=== PATIENT | male | born 1995 | race African-American/Black ===

== ENCOUNTER 2025-04-18 12:40 | Emergency (ER) | payer OTHER, SELFPAY ==
--- NOTE | ~2025-04-18 | XR_ITS ---
Examination: XR chest 2V Clinical History: chest pain- left sided/sob Comparison: None Technique: PA and Lateral Findings: Cardiomediastinal silhouette normal size and configuration. Lungs clear. No acute bony abnormality. IMPRESSION: 1. No acute cardiopulmonary findings. Reviewed, dictated and finalized at location R. ER OPERATOR
--- NOTE | 2025-04-18 12:51 | ED_ITS ---
HPI - SOB/Dyspnea General Chief Complaint: Shortness of Breath/Dyspnea Stated Complaint: SOB/Chest Wall Pain Time Seen by Provider: 04/18/25 12:47 Source: patient Mode of arrival: ambulatory Limitations: no limitations History of Present Illness HPI Narrative: Chuck is a 30-year-old male patient presenting to the clinic today with complaints of shortness of breath, nausea, and chest discomfort x2 days. Chest discomfort comes and goes, rates pain 6/10 and sharp at its worst and goes to a dull ache. No radiation of pain. He reports does have a occasional dry cough. No fever, runny nose, or nasal congestion. Pain is not worse when taking a deep breath. No recent heavy weight lifting or chest work out. States he does have to lift heavy items at work but does not feel like this has strained his chest wall muscle. He is a former smoker. Denies any GERD symptoms. No history of asthma. Related Data Home Medications ?Medication ?Instructions ?Recorded ?Confirmed ?Last Taken ?Type dextroamphetamine-amphetamine ER PO 04/18/25 Unknown History 15 mg 24hr capsule,extend release emtricitabine 200 mg-tenofovir tablet PO 04/18/25 Unk nown History alafenamide fumarate 25 mg tablet (Descovy) quetiapine 50 mg tablet,extended mg PO 04/18/25 Unkno wn History release 24 hr Allergies Allergy/AdvReac Type Severity Reaction Status Date / Time No Known Allergies Allergy Verified 04/18/25 12:43 Review of Systems Review of Systems: Pertinent positives per HPI. Patient denies any fever, chills, rash, headache, visual changes, dizziness, palpitations, nausea, vomiting, diarrhea, constip ation, abdominal pain, or any urinary issues. PMFSH Comments At the time of my signature, I reviewed and agree with the nursing past medical, surgical, social, and family history. There is no relevant family history pertinent to the patient complaint. Exam Narrative: General: Well-developed, well nourished, in no apparent distress Head: Normocephalic, atraumatic Eyes: Pupils equally round and reactive to light bilaterally, EOM intact, sclera and conjunctive clear, no discharge, lids normal Ears: TMs intact and clear, ear canals clear, no drainage, grossly hearing normal. Nose: Nares patent, no discharge, no inflammation, no sinus tenderness. Mouth: Oral pharynx without lesions or masses, good dentition, MMM. Neck: Supple, trachea midline, no enlargement of anterior or posterior cervical nodes, no thyroid masses or goiter palpable. Chest wall: Even rise and fall of the chest wall, nontender to palpation over the anterior chest wall, no bruising or swelling Cardio: Regular rate and rhythm, s1 and s2 normal, no murmur appreciated. Resp: Clear to auscultation bilaterally, no rhonchi, rales, wheezing or rubs Musculoskeletal: No deformity, non-tender to palpation, grossly normal range of motion, muscle strength strong and equal, peripheral pulse strong, no edema, no cyanosis, normal gait and station Course Course Level of Care: Express Care Visit Vital Signs Vital signs: Vital Signs Temperature 36.4 C L 04/18/25 12:55 Pulse Rate 61 04/18/25 12:55 Respiratory Rate 18 04/18/25 12:55 Blood Pressure 147/67 H 04/18/25 12:55 Pulse Oximetry 98 04/18/25 12:55 Oxygen Delivery Room Air 04/18/25 12:55 Temperature 36.4 C L 04/18/25 12:55 Pulse Rate 61 04/18/25 12:55 Respiratory Rate 18 04/18/25 12:55 Blood Pressure 147/67 H 04/18/25 12:55 Pulse Oximetry 98 04/18/25 12:55 Oxygen Delivery Room Air 04/18/25 12:55 [facility] Narrative Medical decision making narrative: At the time of visit patient is resting comfortably on the exam table. Patient appears to be nontoxic. Complaints of shortness of breath, nausea, and chest discomfort x2 days. Chest discomfort comes and goes, rates pain 6/10 and sharp at its worst and goes to a dull ache. No radiation of pain. He reports does have a occasional dry cough. No fever, runny nose, or nasal congestion. Pain is not worse when taking a deep breath. No recent heavy weight lifting or chest work out. States he does have to lift heavy items at work but does not feel like this has strained his chest wall muscle. He is a former smoker. Denies any GERD symptoms. No history of asthma. Home medications/history include HIV prevention-Descovy, mood stabilizer- Seroquel, and ADHD-Adderall. Influenza, COVID, chest x-ray, and EKG were ordered. EKG: EKG shows sinus bradycardia with a nonspecific T-wave abnormality with a heart rate of 55 beats per minute. No ST elevation or depression noted Labs: Influenza and COVID testing were performed and negative in the clinic today. Diagnostics: Chest x-ray is negative for any acute cardiopulmonary process. Plan: I suspect patient is having atypical chest pain, shortness of breath, and nausea. Wells criteria score 0 for PE. Shared decision making was performed. Offer to send patient to the emergency room for further evaluation or may go home and trial naproxen and ondansetron for nausea as this could be pleuritic or inflammatory chest wall pain. Recommend going to the emergency room if symptoms worsen. Patient would like to go home and trial the medicines. Discussed red flag symptoms such as increased shortness of breath, increase in chest pain, dizziness, weakness, lethargy got a confusion, or any other concerning symptoms- to return to the emergency room patient voiced understanding. Supportive measures were discussed with the patient and they voiced understanding discharge instructions and agrees to treatment plan. Return precautions reviewed Wells criteria for PE: 0.0?points Low risk group: 1.3% chance of PE in an ED population. Another study assigned scores <= as ?PE Unlikely? and had a 3% incidence of PE Differential Diagnosis Differential Diagnosis: Differential diagnostic considerations for upper respiratory infection include upper respiratory infection, croup, otitis media, sinusitis, viral infection, bronchitis, influenza, pharyngitis, strep, uvulitis. Lab Data Labs: Lab Results 04/18/25 Range/Units 13:00 POC Influenza A Ag Negative (Negative) POC Influenza B Ag Negative (Negative) POC SARS CoV-2 Ag Negative (Negative) Imaging Data Radiologist's impression: ITS Impressions Chest X-Ray 04/18/25 13:34 IMPRESSION: 1. No acute cardiopulmonary findings. ECG Data EKG #1: Attestation: I personally reviewed and interpreted this ECG as follows: ECG completion date: 04/18/25 ECG completion time: 13:11 Prior ECG tracings: not available for review Interpretation: EKG shows sinus bradycardia with a nonspecific T-wave abnormality. Heart rates [address] interval is 174 milliseconds, QRS durations 97 milliseconds, QT-QTC is 372-361 milliseconds, P-R-T axis is 47 36 28 Discharge Plan Discharge Clinical Impression: Atypical chest pain, Shortness of breath, Nausea Patient Disposition: Home Condition: Stable Instructions: Antibiotic Form, Chest Pain (ED), Acute Nausea and Vomiting (ED), Shortness of Breath (ED) Additional Instructions: Take prescription medications only as prescribed-naproxen and ondansetron Increase fluids and stay well hydrated May take Tylenol as directed on bottle for pain/fever in addition to the naproxen Go to the ED if you develop a worsening in your condition- high fever not controlled by Tylenol or Motrin, dehydration, weakness, lethargy, shortness of breath, or chest pain. Follow up with your PCP in 3-5 days if symptoms persist. Patient Language: [place] Island[place] Prescriptions: New naproxen 500 mg tablet 500 mg PO BID PRN (Reason: pain) 7 Days Qty: 14 0RF ondansetron 8 mg tablet,disintegrating 8 mg PO Q8H PRN (Reason: nausea and vomiting) 3 Days Qty: 10 0RF No Action dextroamphetamine-amphetamine 15 mg capsule,extended release 24hr PO quetiapine 50 mg tablet extended release 24 hr PO Descovy 200-25 mg tablet PO Follow-up/Referrals: PHYSICIAN NOT ON STAFF,NONSTAFF [Primary Care Provider] Time of Disposition: 13:49 Quality NIHSS Nursing Documentation ED NIHSS nursing documentation: reviewed/agree
[2025-04-18 12:55] VITALS: BP 147/67; PULSE 61; RESP 18; TEMP 36.4; O2SAT 98
--- NOTE | 2025-04-18 12:59 | ECG_ITS ---
Test Date: 2025-04-18 13:11:24 Measurements Intervals [place] Rate: 55 P: 47 IN: 174 QRS: 36 QRSD: 97 T: 28 QT: 372 QTc: 357 Interpretive Statements SINUS BRADYCARDIA NONSPECIFIC T-WAVE ABNORMALITY-ANTEROLATERAL LEADS BASELINE ARTIFACT- I, II, AVR BORDERLINE ECG No previous ECG available for comparison Electronically Signed On 04-18-2025 19:27:07 PLASTICS NURSE by Sal Grissom D.O.
[2025-04-18 13:27] LABS: EDCOVIDSCREEN Negative (Negative); EDINFLUASCREEN Negative (Negative); EDINFLUBSCREEN Negative (Negative)
== END 2025-04-18 13:55 | disposition home or self-care (01) ==
PROVIDERS: Emergency Provider Nurse Practitioner Family
DX: R07.89 Other chest pain (principal); R06.02 Shortness of breath; R11.0 Nausea; Z20.822 Contact with and (suspected) exposure to COVID-19; Z87.891 Personal history of nicotine dependence; F90.9 Attention-deficit hyperactivity disorder, unspecified type
CPT/HCPCS: 71046; 87426; 87804; 93005; 99213; G0463